=== PATIENT | female | born 1960 | race Caucasian/White ===

== ENCOUNTER 2019-06-09 10:04 | Emergency (ER) | payer OTHER ==
[~2019-06-09] VITALS: Ht 160 cm; Wt 77.1 kg
[~2019-06-09 10:04] MED LIST: AUGMENTIN 875-1 EACH PO; BENZONATATE100 MG PO; CELEXA 20 MG TA20 M1 PO; ECHINACEA HERB380 MG PO; FLEXERIL PO; HYOSCYAMINE0.375 M2 PO; NORCO 5-325 TA1 EACH PO; PRINZIDE 20-251 EACH PO
[2019-06-09] MEDS ORDERED: CHOLESTEROL (10:17)
[2019-06-09] MEDS ORDERED: ZOLOFT20 MG/1 ML PO (10:17)
[2019-06-09 11:01] LABS: INFLUENZA A ANTIGEN Positive (Negative); INFLUENZA B ANTIGEN Negative (Negative)
[2019-06-09] MEDS ORDERED: TAMIFLU75 MG PO (11:25)
[2019-06-09] MEDS ORDERED: ONDANSETRON HCL4 M2 PO (11:25)
[2019-06-09] MEDS ORDERED: PROMETH-CODEIN 65 ML PO (11:25)
[2019-06-09 11:37] VITALS: BP 133/91
== END 2019-06-09 11:39 | disposition home or self-care (01) ==
LOC: M.ERS 10:04
PROVIDERS: Nurse Practitioner Family
DX: J10.1 Influenza due to other identified influenza virus with other respiratory manifestations (principal); I10 Essential (primary) hypertension; E78.5 Hyperlipidemia, unspecified; Z85.3 Personal history of malignant neoplasm of breast